=== PATIENT | male | born 1950 | race American Indian/Alaskan Native ===

== ENCOUNTER 2018-05-25 09:39 | Day surgery (SDC) | payer BC ==
--- NOTE | 2018-04-27 08:22 | CP.SDSHP ---
Same Day Surgery H & P - History Proposed Procedure: colonoscopy - Previous Medical/Surgical History Cardiac: Hypertension Previous Surgical History: vasectomy - Date & Time Date: 04/27/18 Time: 08:22 Short Stay Discharge - Short Stay Discharge Admitting Diagnosis/Reason for Visit: SCREENING Disposition: HOME/ ROUTINE
[2018-05-25 10:18] VITALS: BMI 27.2
[2018-05-25] MEDS ORDERED: Propofol 10 mg/ml Inj (20 ML) ONE (10:22)
[2018-05-25 10:28] VITALS: O2SAT 100
[2018-05-25] MEDS ORDERED: Lactated Ringer's 500 ML IV SCH (10:30)
--- NOTE | 2018-05-25 10:34 | CP.SDSHP ---
Same Day Surgery H & P - History Proposed Procedure: colonoscopy - Previous Medical/Surgical History Cardiac: Hypertension - Allergies Allergies: Allergies No Known Allergies Allergy (Verified 05/25/18 10:14) - Physical Exam Vital Signs: Vital Signs 05/25/18 09:55 Temperature 98.0 F Pulse Rate 62 Respiratory 20 Rate Blood Pressure 176/91 H O2 Sat by Pulse 100 Oximetry - Date & Time Date: 05/25/18 Time: 10:34 Short Stay Discharge - Short Stay Discharge Admitting Diagnosis/Reason for Visit: ENCOUNTER FOR SCREENING FOR MALIGNANT NEOPLASM OF Disposition: HOME/ ROUTINE
[2018-05-25 11:43] VITALS: TEMP 96.8
[2018-05-25 11:58] VITALS: BP 165/90; PULSE 62; RESP 20
== END 2018-05-25 12:00 | disposition home or self-care (01) ==
LOC: C.ENDO 09:39
PROVIDERS: ATTEND Colon & Rectal Surgery
DX: Z12.11 Encounter for screening for malignant neoplasm of colon (principal); K57.30 Diverticulosis of large intestine without perforation or abscess without bleeding
CPT/HCPCS: 45378; J2001; J2704; J7120